=== PATIENT | female | born 1980 | race Two or more races ===

== ENCOUNTER 2018-10-03 16:32 | Emergency (ER) | payer MEDICAID, MEDICARE ==
[~2018-10-03] VITALS: Ht 172.7 cm; Wt 73.0 kg
[2018-10-03] MEDS ORDERED: MAGNESIUM/ALUMINUM HYDROXIDE/SIMETHICONE 30ML UDC PO STA (17:06)
[2018-10-03] MEDS ORDERED: VISCOUS LIDOCAINE 2% 15 ML UDC PO STA (17:06)
[2018-10-03] MEDS ORDERED: ALPRAZOLAM 0.5 MG TABLET PO ONE (17:15)
[2018-10-03] MEDS ORDERED: ASPIRIN 81MG TABLET PO ONE (17:15)
[2018-10-03 17:57] LABS: CLARITY URINE CLEAR (CLEAR); COLOR URINE YELLOW (YELLOW); KETONES URINE NEGATIVE (NEGATIVE); LEUKOCYTE ESTERASE URINE NEGATIVE (NEGATIVE); NITRITE URINE NEGATIVE (NEGATIVE); OCCULT BLOOD URINE 1+ (NEGATIVE); PROTEIN URINE NEGATIVE (NEGATIVE); SPECIFIC GRAVITY URINE 1.005 (1.005-1.030); UROBILINOGEN URINE 0.2 E.U./dL (0.2-1.0)
[2018-10-03 18:31] LABS: BASOPHILS % 0.9 % (0.0-2.0); EOSINOPHILS % 0.2 % (0.0-5.0); HEMATOCRIT. 35.9 % (36.0-48.0); HEMOGLOBIN. 11.7 g/dL (12.0-16.0); LYMPHOCYTES % 16.7 % (20.0-50.0); MEAN CORPUSCULAR HEMOGLOBIN 29.3 pg (28.0-32.0); MEAN PLATELET VOLUME 11.4 fl (7.4-10.4); MONOCYTES % 4.9 % (2.0-8.0); NEUTROPHILS % 77.3 % (40.0-76.0); PLATELET 112 x1000/uL (130-400); RED BLOOD CELL COUNT 3.99 mill/uL (4.2-5.4); RED CELL DISTRIBUTION WIDTH 14.5 % (11.6-14.6)
[2018-10-03 18:37] LABS: CHLORIDE 106 mEq/L (98-107)
[2018-10-03 19:30] VITALS: BP 118/62
== END 2018-10-03 19:40 | disposition home or self-care (01) ==
LOC: ER 16:32
DX: R07.89 Other chest pain (principal); F41.9 Anxiety disorder, unspecified; R03.0 Elevated blood-pressure reading, without diagnosis of hypertension
CPT/HCPCS: 36415; 71045; 81025; 83880; 84484; 93005; 99284

== ENCOUNTER 2024-03-24 19:08 | Emergency (ER) | payer MEDICARE, OTHER ==
[~2024-03-24] VITALS: Ht 167.6 cm; Wt 64.0 kg
[2024-03-24 19:21] VITALS: O2SAT 100
[2024-03-24] MEDS: HYDROCODONE/ACETAMINOPHEN 5/325MG TABLET PO ONE (20:08)
[2024-03-24] MEDS ORDERED: HYDR-4001 MT (21:22)
[2024-03-24 21:49] VITALS: BP 135/87; PULSE 91; RESP 18; TEMP 97.8
== END 2024-03-24 21:56 | disposition home or self-care (01) ==
LOC: ER 19:08
DX: S20.212A Contusion of left front wall of thorax, initial encounter (principal); X58.XXXA Exposure to other specified factors, initial encounter; Y93.89 Activity, other specified; Y92.89 Other specified places as the place of occurrence of the external cause; Y99.8 Other external cause status
CPT/HCPCS: 71101; 99283